=== PATIENT | female | born 1985 | race Caucasian/White ===

== ENCOUNTER 2016-10-24 21:23 | Emergency (ER) | payer MEDICAID ==
--- NOTE | 2016-10-27 19:05 | ER ---
ADMIT: 10/24/2016 RM/LOC: ER [facility] MR#: [id number] [place], [place] [id number] RENETTA COLEMAN [address] [place] [address] Emergency Room Report SEX: F AGE: 31 : 1985 DATE: 10/24/2016 HISTORY OF PRESENT ILLNESS: The patient is a 31-year-old female, who came here with chief complaint of one day of nonbloody, watery diarrhea, and nausea and vomiting, which is also nonbilious and nonbloody. The patient also complains of crampy generalized abdominal pain while she has vomiting. The patient denies similar episodes in the past and denies similar episodes in the household or recent travel. PHYSICAL EXAMINATION: VITAL SIGNS: The patient had blood pressure of 130/70 with heart rate of 72, respiratory rate of 16, and was afebrile. GENERAL: The patient was in mild distress, was alert, oriented to person, place, and time. HEAD AND NECK: Negative. CHEST: Clear bilaterally. HEART: Normal heart sounds without any gallops or murmurs. ABDOMEN: Soft without any tenderness, rebound, or guarding. There is no CVA tenderness. The rest of the physical exam is noncontributory. EMERGENCY ROOM COURSE: The patient received Zofran for nausea and vomiting and was prescribed morphine for pain control. The patient received IV fluid 1 L normal saline. Lab work was suggestive of lipase of 256 with sodium of 140 and potassium of 4.1, bicarb level was 26. Creatinine level was 0.6 and UA was just positive for 8 RBC. The patient has 9000 white BC with hemoglobin of 12.9 and platelet 281. Symptoms were controlled. The patient was re- examined. Abdominal exam was benign. At this stage, gastroenteritis possible viral causes are at the top of our differentials. PLAN: The patient was reassured, advised to take oral fluids and was discharged to home with return precautions, and follow up with the primary doctor. Patient acknowledged she understood the plan and agreed with it, and the patient was discharged to home. Keyur Brown MD/ cesilia JOB #: [id number] CC: Brant Banks MD, Attending Physician Renetta Hinton MD, Family Physician
== END 2016-10-24 23:28 | disposition home or self-care (01) ==
LOC: ER 21:23
DX: K52.9 Noninfective gastroenteritis and colitis, unspecified (principal); F31.9 Bipolar disorder, unspecified; F17.210 Nicotine dependence, cigarettes, uncomplicated; Z90.49 Acquired absence of other specified parts of digestive tract; Z88.5 Allergy status to narcotic agent

== ENCOUNTER 2016-12-03 21:42 | Emergency (ER) | payer MEDICAID ==
--- NOTE | 2016-12-06 16:41 | ER ---
ADMIT: 12/03/2016 RM/LOC: ER [facility] MR#: [id number] [id number] [id number] RENETTA COLEMAN [address] [place] [address] Emergency Room Report SEX: F AGE: 31 : 1985 DATE: 12/03/2016 ADDENDUM: This patient comes to the ER because she has had abdominal pain that started suddenly prior to arrival. She states she feels like the pain is in her cervix. She has an IUD that she has had there for 2 years. She has not had any issues with it, but she is wondering if that is causing her pain. On physical exam, she rates her pain as a 10/10 and she points to the area of pain being right above her pubic symphysis and in her left pelvic region. She has a normal external genitalia exam. There is no abnormal drainage noticed in the vagina. I do see the strings from the IUD. She does have some left adnexal tenderness. No cervical motion tenderness. Pelvic ultrasound showed a left ovarian cyst. She was given Toradol in the ER, which did improve her pain. I wrote a prescription for tramadol. We will have her follow up with her primary in the next few days if not feeling better. Please see my T- sheet. KENZIE Burnette / Keyur Brown MD / hunterl JOB #: [id number] CC: Keyur Brown MD, Attending Physician Renetta Hinton MD, Family Physician
== END 2016-12-03 23:48 | disposition home or self-care (01) ==
LOC: ER 21:42
DX: N83.202 Unspecified ovarian cyst, left side (principal); F41.9 Anxiety disorder, unspecified; F17.210 Nicotine dependence, cigarettes, uncomplicated; Z90.49 Acquired absence of other specified parts of digestive tract; Z79.899 Other long term (current) drug therapy; Z88.5 Allergy status to narcotic agent